=== PATIENT | female | born 2000 | race Caucasian/White ===

== ENCOUNTER 2022-06-05 03:45 | Inpatient (IN) | payer SELFPAY ==
--- NOTE | 2022-06-05 | ECG_ITS ---
Test Reason : MED CLEARANCE Blood Pressure : / mmHG Vent. Rate : 071 BPM Atrial Rate : 071 BPM P-R Int : 114 ms QRS Dur : 084 ms QT Int : 406 ms P-R-T Axes : 058 070 043 degrees QTc Int : 441 ms Normal sinus rhythm with sinus arrhythmia Normal ECG No previous ECGs available Referred By: Cuca Hernandez Electronically Signed By:SHIVAM MATHEWS MD
[2022-06-05 03:56] VITALS: BP 136/97; PULSE 97; RESP 16; TEMP 37.2; O2SAT 100; BMI 19.5
[2022-06-05 04:20] LABS: Appearance Urine Turbid; Color Urine Yellow; Glucose Urine UA Negative (Negative); Leukocyte Esterase Urine Moderate (2+) (Negative); Nitrite Urine Positive (Negative); PH 6.5 (5.0-9.0); Specific Gravity - Urine 1.015 (1.005-1.025); UMIC TRIGGER UA YES; Urine Blood Negative (Negative); Urine Ketones Negative (Negative); Urine Protein Negative (Neg-Trace)
[2022-06-05 04:21] LABS: UPreg QC Valid YES; Urine Pregnancy NEGATIVE (NEGATIVE)
--- NOTE | 2022-06-05 04:25 | ED.PSYCH ---
HPI - Psych General Chief Complaint: Psychiatric Symptoms <Samuel Moeller MD - Last Filed: 06/05/22 07:28> Stated Complaint: section 12 <Samuel Moeller MD - Last Filed: 06/05/22 07:28> Time Seen by Provider: 06/05/22 03:48 <Samuel Moeller MD - Last Filed: 06/05/22 07:28> Source: patient <Samuel Moeller MD - Last Filed: 06/05/22 07:28> Mode of arrival: EMS <Samuel Moeller MD - Last Filed: 06/05/22 07:28> Limitations: no limitations <Samuel Moeller MD - Last Filed: 06/05/22 07:28> History of Present Illness HPI Narrative: Previously of bipolar disorder not take any medication her car got towed because she did have registration went to the police station was very paranoid seeing at being kidnapped backache AKA very anxious when she arrived at the time of the kidney patient is Hanna cooperative denied any other c/o no suicidal <Samuel Moeller MD - Last Filed: 06/05/22 07:28> Related Data Home Medications: Home Medications Medication Instructions Recorded Confirmed No Known Home Meds 06/05/22 06/05/22 <Samuel Moeller MD - Last Filed: 06/05/22 07:28> Allergies/Adverse Reactions: Allergies Allergy/AdvReac Type Severity Reaction Status Date / Time No Known Allergies Allergy Verified 06/05/22 03:55 <Samuel Moeller MD - Last Filed: 06/05/22 07:28> Review of Systems Review of Systems: Yes all other systems are reviewed and are negative <Samuel Moeller MD - Last Filed: 06/05/22 07:28> [facility] Social History Social History: Social History Advance Directives: No Advance Directives Information Provided: No <Samuel Moeller MD - Last Filed: 06/05/22 07:28> Physical Exam Vital Signs: Vital Signs: Last Vital Signs Temp 99.0 F 06/05/22 03:56 Pulse 97 06/05/22 03:56 Resp 16 06/05/22 03:56 BP 136/97 H 06/05/22 03:56 Pulse Ox 100 06/05/22 03:56 O2 Del Method 06/05/22 03:56 BMI result Body Mass Index 19.5 <Samuel Moeller MD - Last Filed: 06/05/22 07:28> Vital Signs: Last Vital Signs Temp 99.0 F 06/05/22 03:56 Pulse 97 06/05/22 03:56 Resp 16 06/05/22 03:56 BP 136/97 H 06/05/22 03:56 Pulse Ox 100 06/05/22 03:56 O2 Del Method 06/05/22 03:56 BMI result Body Mass Index 19.5 <Pattie Lynn DO - Last Filed: 06/05/22 09:23> Appearance: Alert. Oriented X3. No acute distress. Blank facies Eyes: PERRLA, No Nystagmus ENT: Pharynx normal. Oral Mucosa moist Neck: Normal inspection. Neck supple. CVS: Normal heart rate and rhythm. Pulses normal. Respiratory: No respiratory distress. Equal air entry bilateral, no wheezing/rales/rhonchi Abdomen: Soft and nontender. Bowel sounds are present, no mass palpable, no CVA tenderness Skin: Skin warm and dry. Normal skin color. Normal skin turgor. Extremities: No lower extremity edema. No calf tenderness Psych: Flat affect no hesitation delusion at this time no suicidal feeling Neuro: Oriented X 3. No motor deficit. No sensory deficit.No cerebellar signs , cranial nerves II-XII intact <Samuel Moeller MD - Last Filed: 06/05/22 07:28> Course Course Course Narrative: 06/05/22 922am Physician observation started at 922am Patient placed in physician observation because the patient needed more time for CARE team to assess the need for psych admission. At the time observation was started the patient's vitals were stable, has UTI will start on macrobid, VS stable, no acute events reported overnight. <Pattie Lynn DO - Last Filed: 06/05/22 09:23> MDM - Psych Lab Data Result diagrams: : 06/05/22 05:03 06/05/22 05:03 <Samuel Moeller MD - Last Filed: 06/05/22 07:28> Labs: Lab Results 06/05/22 06/05/22 06/05/22 Range/Units 04:09 04:10 04:10 WBC (4.8-10.8) X10*3/uL RBC (4.20-5.50) X10*6/uL Hgb (12.0-16.0) g/dl Hct (37.0-47.0) % MCV (80.0-98.0) fL MCH (27.0-33.0) pg MCHC (31.0-35.0) g/dl RDW (11.0-16.0) % Plt Count (160-400) X10*3/uL MPV (9.4-12.3) fL Immature Gran % (Auto) (0.0-0.4) % Neut % (Auto) (45-73) % Lymph % (Auto) (20-40) % [place] % (Auto) (2-11) % Eos % (Auto) (0-4) % Baso % (Auto) (0-2) % Lymph # (Auto) (1.2-4.9) X10*3/uL [place] # (Auto) (0.1-1.2) X10*3/uL Eos # (Auto) (0.0-0.4) X10*3/uL Baso # (Auto) (0.0-0.2) X10*3/uL Abs Immat Gran (auto) (0.00-0.03) X10*3/uL Absolute Neuts (auto) (2.0-8.3) x10*3/uL Absolute Nucleated RBC (0.0-0.012) X10*3/uL Nucleated RBC % (auto) (0.0-0.2) /100WBC Sodium (135-145) mmol/L Potassium (3.3-5.1) mmol/L Chloride (96-108) mmol/L Carbon Dioxide (22-29) mmol/L Anion Gap (12-20) BUN (9-16) mg/dL Creatinine (0.5-1.4) mg/dL Estim Creat Clear Calc Estimated GFR Random Glucose (60-115) mg/dL Calcium (8.4-10.2) mg/dL Total Bilirubin (0.0-1.0) mg/dL AST (5-31) U/L ALT (0-31) U/L Alkaline Phosphatase (39-117) U/L Total Protein (6.5-8.0) g/dL Albumin (3.5-5.0) g/dL Urine Color Urine Appearance Urine pH (5.0-9.0) Ur Specific [place] (1.005-1.025) Urine Protein (Neg-Trace) mg/dL Urine Glucose (UA) (Negative) mg/dL Urine Ketones (Negative) mg/dL Urine Blood (Negative) Urine Nitrite (Negative) Ur Leukocyte Esterase (Negative) Urine RBC (0-2) /HPF Urine WBC (0-5) /HPF Ur Squamous Epith Cells (0-2) /HPF Urine Bacteria (None Seen) Hyaline Casts (0-2) /LPF Urine Test NEGATIVE (NEGATIVE) Urine Opiates Screen Not Detected (Not Detect) Urine Fentanyl Screen Not Detected (Not Detect) Ur Barbiturates Screen Not Detected (Not Detect) Ur Phencyclidine Scrn Not Detected (Not Detect) Ur Amphetamines Screen Not Detected (Not Detect) U Benzodiazepines Scrn Not Detected (Not Detect) Urine Cocaine Screen Not Detected (Not Detect) U Marijuana (THC) Screen POSITIVE H (Not Detect) Ethyl Alcohol mg/dL COVID-19 (JUANITA) Negative (Negative) COVID-19 Clin Com See Note 06/05/22 06/05/22 06/05/22 Range/Units 04:10 05:03 05:03 WBC 10.8 (4.8-10.8) X10*3/uL RBC 4.70 (4.20-5.50) X10*6/uL Hgb 14.7 (12.0-16.0) g/dl Hct 41.7 (37.0-47.0) % MCV 88.7 (80.0-98.0) fL MCH 31.3 (27.0-33.0) pg MCHC 35.3 H (31.0-35.0) g/dl RDW 11.6 (11.0-16.0) % Plt Count 173 (160-400) X10*3/uL MPV 9.9 (9.4-12.3) fL Immature Gran % (Auto) 0.3 (0.0-0.4) % Neut % (Auto) 71.5 (45-73) % Lymph % (Auto) 20.2 (20-40) % [place] % (Auto) 6.4 (2-11) % Eos % (Auto) 1.0 (0-4) % Baso % (Auto) 0.6 (0-2) % Lymph # (Auto) 2.2 (1.2-4.9) X10*3/uL [place] # (Auto) 0.7 (0.1-1.2) X10*3/uL Eos # (Auto) 0.1 (0.0-0.4) X10*3/uL Baso # (Auto) 0.1 (0.0-0.2) X10*3/uL Abs Immat Gran (auto) 0.03 (0.00-0.03) X10*3/uL Absolute Neuts (auto) 7.7 (2.0-8.3) x10*3/uL Absolute Nucleated RBC 0.000 (0.0-0.012) X10*3/uL Nucleated RBC % (auto) 0.0 (0.0-0.2) /100WBC Sodium 143 (135-145) mmol/L Potassium 3.4 (3.3-5.1) mmol/L Chloride 106 (96-108) mmol/L Carbon Dioxide 25 (22-29) mmol/L Anion Gap 15 (12-20) BUN 13 (9-16) mg/dL Creatinine 0.73 (0.5-1.4) mg/dL Estim Creat Clear Calc 95.6 Estimated GFR > 60 Random Glucose 92 (60-115) mg/dL Calcium 9.4 (8.4-10.2) mg/dL Total Bilirubin 0.3 (0.0-1.0) mg/dL AST 15 (5-31) U/L ALT 10 (0-31) U/L Alkaline Phosphatase 44 (39-117) U/L Total Protein 7.0 (6.5-8.0) g/dL Albumin 4.6 (3.5-5.0) g/dL Urine Color Yellow Urine Appearance Turbid Urine pH 6.5 (5.0-9.0) Ur Specific [place] 1.015 (1.005-1.025) Urine Protein Negative (Neg-Trace) mg/dL Urine Glucose (UA) Negative (Negative) mg/dL Urine Ketones Negative (Negative) mg/dL Urine Blood Negative (Negative) Urine Nitrite Positive H (Negative) Ur Leukocyte Esterase Moderate (2+) H (Negative) Urine RBC 0-2 (0-2) /HPF Urine WBC >50 H (0-5) /HPF Ur Squamous Epith Cells 6-10 (0-2) /HPF Urine Bacteria 4+ (None Seen) Hyaline Casts 0-2 (0-2) /LPF Urine Test (NEGATIVE) Urine Opiates Screen (Not Detect) Urine Fentanyl Screen (Not Detect) Ur Barbiturates Screen (Not Detect) Ur Phencyclidine Scrn (Not Detect) Ur Amphetamines Screen (Not Detect) U Benzodiazepines Scrn (Not Detect) Urine Cocaine Screen (Not Detect) U Marijuana (THC) Screen (Not Detect) Ethyl Alcohol mg/dL COVID-19 (JUANITA) (Negative) COVID-19 Clin Com 06/05/22 Range/Units 05:03 WBC (4.8-10.8) X10*3/uL RBC (4.20-5.50) X10*6/uL Hgb (12.0-16.0) g/dl Hct (37.0-47.0) % MCV (80.0-98.0) fL MCH (27.0-33.0) pg MCHC (31.0-35.0) g/dl RDW (11.0-16.0) % Plt Count (160-400) X10*3/uL MPV (9.4-12.3) fL Immature Gran % (Auto) (0.0-0.4) % Neut % (Auto) (45-73) % Lymph % (Auto) (20-40) % [place] % (Auto) (2-11) % Eos % (Auto) (0-4) % Baso % (Auto) (0-2) % Lymph # (Auto) (1.2-4.9) X10*3/uL [place] # (Auto) (0.1-1.2) X10*3/uL Eos # (Auto) (0.0-0.4) X10*3/uL Baso # (Auto) (0.0-0.2) X10*3/uL Abs Immat Gran (auto) (0.00-0.03) X10*3/uL Absolute Neuts (auto) (2.0-8.3) x10*3/uL Absolute Nucleated RBC (0.0-0.012) X10*3/uL Nucleated RBC % (auto) (0.0-0.2) /100WBC Sodium (135-145) mmol/L Potassium (3.3-5.1) mmol/L Chloride (96-108) mmol/L Carbon Dioxide (22-29) mmol/L Anion Gap (12-20) BUN (9-16) mg/dL Creatinine (0.5-1.4) mg/dL Estim Creat Clear Calc Estimated GFR Random Glucose (60-115) mg/dL Calcium (8.4-10.2) mg/dL Total Bilirubin (0.0-1.0) mg/dL AST (5-31) U/L ALT (0-31) U/L Alkaline Phosphatase (39-117) U/L Total Protein (6.5-8.0) g/dL Albumin (3.5-5.0) g/dL Urine Color Urine Appearance Urine pH (5.0-9.0) Ur Specific [place] (1.005-1.025) Urine Protein (Neg-Trace) mg/dL Urine Glucose (UA) (Negative) mg/dL Urine Ketones (Negative) mg/dL Urine Blood (Negative) Urine Nitrite (Negative) Ur Leukocyte Esterase (Negative) Urine RBC (0-2) /HPF Urine WBC (0-5) /HPF Ur Squamous Epith Cells (0-2) /HPF Urine Bacteria (None Seen) Hyaline Casts (0-2) /LPF Urine Test (NEGATIVE) Urine Opiates Screen (Not Detect) Urine Fentanyl Screen (Not Detect) Ur Barbiturates Screen (Not Detect) Ur Phencyclidine Scrn (Not Detect) Ur Amphetamines Screen (Not Detect) U Benzodiazepines Scrn (Not Detect) Urine Cocaine Screen (Not Detect) U Marijuana (THC) Screen (Not Detect) Ethyl Alcohol < 10 mg/dL COVID-19 (JUANITA) (Negative) COVID-19 Clin Com <Samuel Moeller MD - Last Filed: 06/05/22 07:28> Lab Results 06/05/22 06/05/22 06/05/22 Range/Units 04:09 04:10 04:10 WBC (4.8-10.8) X10*3/uL RBC (4.20-5.50) X10*6/uL Hgb (12.0-16.0) g/dl Hct (37.0-47.0) % MCV (80.0-98.0) fL MCH (27.0-33.0) pg MCHC (31.0-35.0) g/dl RDW (11.0-16.0) % Plt Count (160-400) X10*3/uL MPV (9.4-12.3) fL Immature Gran % (Auto) (0.0-0.4) % Neut % (Auto) (45-73) % Lymph % (Auto) (20-40) % [place] % (Auto) (2-11) % Eos % (Auto) (0-4) % Baso % (Auto) (0-2) % Lymph # (Auto) (1.2-4.9) X10*3/uL [place] # (Auto) (0.1-1.2) X10*3/uL Eos # (Auto) (0.0-0.4) X10*3/uL Baso # (Auto) (0.0-0.2) X10*3/uL Abs Immat Gran (auto) (0.00-0.03) X10*3/uL Absolute Neuts (auto) (2.0-8.3) x10*3/uL Absolute Nucleated RBC (0.0-0.012) X10*3/uL Nucleated RBC % (auto) (0.0-0.2) /100WBC Sodium (135-145) mmol/L Potassium (3.3-5.1) mmol/L Chloride (96-108) mmol/L Carbon Dioxide (22-29) mmol/L Anion Gap (12-20) BUN (9-16) mg/dL Creatinine (0.5-1.4) mg/dL Estim Creat Clear Calc Estimated GFR Random Glucose (60-115) mg/dL Calcium (8.4-10.2) mg/dL Total Bilirubin (0.0-1.0) mg/dL AST (5-31) U/L ALT (0-31) U/L Alkaline Phosphatase (39-117) U/L Total Protein (6.5-8.0) g/dL Albumin (3.5-5.0) g/dL Urine Color Urine Appearance Urine pH (5.0-9.0) Ur Specific [place] (1.005-1.025) Urine Protein (Neg-Trace) mg/dL Urine Glucose (UA) (Negative) mg/dL Urine Ketones (Negative) mg/dL Urine Blood (Negative) Urine Nitrite (Negative) Ur Leukocyte Esterase (Negative) Urine RBC (0-2) /HPF Urine WBC (0-5) /HPF Ur Squamous Epith Cells (0-2) /HPF Urine Bacteria (None Seen) Hyaline Casts (0-2) /LPF Urine Test NEGATIVE (NEGATIVE) Urine Opiates Screen Not Detected (Not Detect) Urine Fentanyl Screen Not Detected (Not Detect) Ur Barbiturates Screen Not Detected (Not Detect) Ur Phencyclidine Scrn Not Detected (Not Detect) Ur Amphetamines Screen Not Detected (Not Detect) U Benzodiazepines Scrn Not Detected (Not Detect) Urine Cocaine Screen Not Detected (Not Detect) U Marijuana (THC) Screen POSITIVE H (Not Detect) Ethyl Alcohol mg/dL COVID-19 (JUANITA) Negative (Negative) COVID-19 Clin Com See Note 06/05/22 06/05/22 06/05/22 Range/Units 04:10 05:03 05:03 WBC 10.8 (4.8-10.8) X10*3/uL RBC 4.70 (4.20-5.50) X10*6/uL Hgb 14.7 (12.0-16.0) g/dl Hct 41.7 (37.0-47.0) % MCV 88.7 (80.0-98.0) fL MCH 31.3 (27.0-33.0) pg MCHC 35.3 H (31.0-35.0) g/dl RDW 11.6 (11.0-16.0) % Plt Count 173 (160-400) X10*3/uL MPV 9.9 (9.4-12.3) fL Immature Gran % (Auto) 0.3 (0.0-0.4) % Neut % (Auto) 71.5 (45-73) % Lymph % (Auto) 20.2 (20-40) % [place] % (Auto) 6.4 (2-11) % Eos % (Auto) 1.0 (0-4) % Baso % (Auto) 0.6 (0-2) % Lymph # (Auto) 2.2 (1.2-4.9) X10*3/uL [place] # (Auto) 0.7 (0.1-1.2) X10*3/uL Eos # (Auto) 0.1 (0.0-0.4) X10*3/uL Baso # (Auto) 0.1 (0.0-0.2) X10*3/uL Abs Immat Gran (auto) 0.03 (0.00-0.03) X10*3/uL Absolute Neuts (auto) 7.7 (2.0-8.3) x10*3/uL Absolute Nucleated RBC 0.000 (0.0-0.012) X10*3/uL Nucleated RBC % (auto) 0.0 (0.0-0.2) /100WBC Sodium 143 (135-145) mmol/L Potassium 3.4 (3.3-5.1) mmol/L Chloride 106 (96-108) mmol/L Carbon Dioxide 25 (22-29) mmol/L Anion Gap 15 (12-20) BUN 13 (9-16) mg/dL Creatinine 0.73 (0.5-1.4) mg/dL Estim Creat Clear Calc 95.6 Estimated GFR > 60 Random Glucose 92 (60-115) mg/dL Calcium 9.4 (8.4-10.2) mg/dL Total Bilirubin 0.3 (0.0-1.0) mg/dL AST 15 (5-31) U/L ALT 10 (0-31) U/L Alkaline Phosphatase 44 (39-117) U/L Total Protein 7.0 (6.5-8.0) g/dL Albumin 4.6 (3.5-5.0) g/dL Urine Color Yellow Urine Appearance Turbid Urine pH 6.5 (5.0-9.0) Ur Specific [place] 1.015 (1.005-1.025) Urine Protein Negative (Neg-Trace) mg/dL Urine Glucose (UA) Negative (Negative) mg/dL Urine Ketones Negative (Negative) mg/dL Urine Blood Negative (Negative) Urine Nitrite Positive H (Negative) Ur Leukocyte Esterase Moderate (2+) H (Negative) Urine RBC 0-2 (0-2) /HPF Urine WBC >50 H (0-5) /HPF Ur Squamous Epith Cells 6-10 (0-2) /HPF Urine Bacteria 4+ (None Seen) Hyaline Casts 0-2 (0-2) /LPF Urine Test (NEGATIVE) Urine Opiates Screen (Not Detect) Urine Fentanyl Screen (Not Detect) Ur Barbiturates Screen (Not Detect) Ur Phencyclidine Scrn (Not Detect) Ur Amphetamines Screen (Not Detect) U Benzodiazepines Scrn (Not Detect) Urine Cocaine Screen (Not Detect) U Marijuana (THC) Screen (Not Detect) Ethyl Alcohol mg/dL COVID-19 (JUANITA) (Negative) COVID-19 Clin Com 06/05/22 Range/Units 05:03 WBC (4.8-10.8) X10*3/uL RBC (4.20-5.50) X10*6/uL Hgb (12.0-16.0) g/dl Hct (37.0-47.0) % MCV (80.0-98.0) fL MCH (27.0-33.0) pg MCHC (31.0-35.0) g/dl RDW (11.0-16.0) % Plt Count (160-400) X10*3/uL MPV (9.4-12.3) fL Immature Gran % (Auto) (0.0-0.4) % Neut % (Auto) (45-73) % Lymph % (Auto) (20-40) % [place] % (Auto) (2-11) % Eos % (Auto) (0-4) % Baso % (Auto) (0-2) % Lymph # (Auto) (1.2-4.9) X10*3/uL [place] # (Auto) (0.1-1.2) X10*3/uL Eos # (Auto) (0.0-0.4) X10*3/uL Baso # (Auto) (0.0-0.2) X10*3/uL Abs Immat Gran (auto) (0.00-0.03) X10*3/uL Absolute Neuts (auto) (2.0-8.3) x10*3/uL Absolute Nucleated RBC (0.0-0.012) X10*3/uL Nucleated RBC % (auto) (0.0-0.2) /100WBC Sodium (135-145) mmol/L Potassium (3.3-5.1) mmol/L Chloride (96-108) mmol/L Carbon Dioxide (22-29) mmol/L Anion Gap (12-20) BUN (9-16) mg/dL Creatinine (0.5-1.4) mg/dL Estim Creat Clear Calc Estimated GFR Random Glucose (60-115) mg/dL Calcium (8.4-10.2) mg/dL Total Bilirubin (0.0-1.0) mg/dL AST (5-31) U/L ALT (0-31) U/L Alkaline Phosphatase (39-117) U/L Total Protein (6.5-8.0) g/dL Albumin (3.5-5.0) g/dL Urine Color Urine Appearance Urine pH (5.0-9.0) Ur Specific [place] (1.005-1.025) Urine Protein (Neg-Trace) mg/dL Urine Glucose (UA) (Negative) mg/dL Urine Ketones (Negative) mg/dL Urine Blood (Negative) Urine Nitrite (Negative) Ur Leukocyte Esterase (Negative) Urine RBC (0-2) /HPF Urine WBC (0-5) /HPF Ur Squamous Epith Cells (0-2) /HPF Urine Bacteria (None Seen) Hyaline Casts (0-2) /LPF Urine Test (NEGATIVE) Urine Opiates Screen (Not Detect) Urine Fentanyl Screen (Not Detect) Ur Barbiturates Screen (Not Detect) Ur Phencyclidine Scrn (Not Detect) Ur Amphetamines Screen (Not Detect) U Benzodiazepines Scrn (Not Detect) Urine Cocaine Screen (Not Detect) U Marijuana (THC) Screen (Not Detect) Ethyl Alcohol < 10 mg/dL COVID-19 (JUANITA) (Negative) COVID-19 Clin Com <Pattie Lynn DO - Last Filed: 06/05/22 09:23> Discharge Plan Discharge Clinical Impression: Bipolar disorder, Depression, Acute UTI <Samuel Moeller MD - Last Filed: 06/05/22 07:28> Patient Disposition: Still a Patient <Samuel Moeller MD - Last Filed: 06/05/22 07:28> Prescriptions: No Action No Known Home Meds <Samuel Moeller MD - Last Filed: 06/05/22 07:28>
--- OUTSIDE RECORDS SUMMARY | 2022-06-05 04:31 | XMS_ITS ---
:2000 Author Care Team Providers Name Role Phone JefferyRoger Primary Care Provider Unavailable Allergies Code Code System Name Reaction Severity Status Onset NKDA ? Medications Name Status Start Date Stop Date ? ? buspirone 5 mg tablet Active ? Not availa ble TAKE ONE AT BEDTIME X 5 DAYS THEN TAKE ONE TABLET TWICE A DAY ceftriaxone 500 mg solution for injection Active ? Not available Take 500 mg by injection route. Diflucan 150 mg tablet Active ? Not avail able Take 1 tablet every day by oral route as directed for 1 day. doxycycline hyclate 100 mg tablet Active ? Not available Take 1 tablet twice a day by oral route for 7 days. Flagyl 500 mg tablet Active ? Not availab le Take 1 tablet every 12 hours by oral route as directed for 7 da ys. avoid alcohol while on meds and 48 hours after completing treat ment lamotrigine 100 mg tablet Active ? Not av ailable TAKE 1 TABLET BY MOUTH EVERY DAY lamotrigine 25 mg tablet Active ? Not inderjit ilable TAKE ONE DAILY X 7 DAYS THEN TAKE 1 TAB TWICE A DAY X 7 DAYS THEN TAKE 2 TABS TWICE A DAY sertraline 25 mg tablet Active ? Not avai lable TAKE 1 TABLET BY MOUTH EVERY DAY Problems None recorded. Procedures None recorded. Results Lab Results Date Name Specimen Result Interpretation Description Value Range Status Address ? 01/15/2021 Vaginosis ABNORMAL Bacterial ? (neg) Ynes garcias [facility] Vaginitis Vaginosis Refe rence plus Laboratori es: [address], [place] ? ? ABNORMAL Danette ? (neg) Final [facility] Laborator[facility] es: [address], [place] ? ? Normal Danette ? (neg) Final [facility] [place] Referenc e Laboratori es: [address], [place] ? ? Normal Trichomonas ? (neg) Final [place] Vaginalis Referen ce Laboratori es: [address], [place] ? ? Normal C.trachomati ? (neg) Final [facility] s Amp Probe Refer ence Laboratori es: [address], [place] ? ? Normal N.gonorrhoea ? (neg) Final [facility] e Amp Probe Refer ence Laboratori es: [address], [place] 01/15/2021 Culture, Urine ? Specimen clean ? Final [facility] Urine Description catch Refer ence (urine) Laborator ies: [address], [place] ? ? Urine ? Special none ? Final [facility] Requests Referenc e Laboratori es: [address], [place] ? ? Urine ? Culture mixed ? Final [facility] bacterial Referen ce av, Laboratori es: indicativ [address], [place]. ? ? Urine ? Report final ? Final [facility] Status Referen ce 1 Laboratori es: [address], [place] 01/15/2021 ? Hcg negative ? ? [facility] [place] : Urine [address], [place] 01/15/2021 Urinalysis ? Appearance cloudy ? ? [facility] [place]: [address], [place] ? ? ? Color yellow ? ? [facility] [place] : [address], [place] ? ? ? Glucose Negative ? ? [facility] [place] : [address], [place] ? ? ? Bilirubin Negative ? ? [facility] [place] : [address], [place] ? ? ? Ketone Negative ? ? [facility] [place] : [address], [place] ? ? ? Specific 1.010 ? ? [facility] [place]: [address], [place] ? ? ? Blood Trace(non ? ? [facility] [place] d) [address], [place] ? ? ? Ph 8.0 ? ? [facility] [place] : [address], [place] ? ? ? Protein 30 + ? ? [facility] [place] : [address], [place] ? ? ? Urobilinogen 0.2-Yadira ? ? [facility] [place] : [address], [place] ? ? ? Nitrite negative ? ? [facility] [place] : [address], [place] ? ? ? Leukocytes Small+ ? ? [facility] [place] : [address], [place] Past Encounters 01/15/2021 At Risk of Sexually Transmitted Infectio n Enoc Lord MD: [address], [place] [facility] [place] [id number], Ph. Social History Tobacco Smoking Status Heavy Tobacco Smoker (1/2 pack per da y) Vaccine List Vaccine Type Tdap 03/07/2020 Plan of Care Reminders Provider Appointments None recorded. ? ? Lab None recorded. ? ? Referral None recorded. ? ? Procedures None recorded. ? ? Surgeries None recorded. ? ? Imaging None recorded. ? ? Vitals Blood Pressure 116/72 mm[Hg]
[2022-06-05 04:32] LABS: COVID-19 Test Negative (Negative)
[2022-06-05 04:34] LABS: Amphetamine Screen Urine Not Detected (Not Detect); Barbiturates, Urine Not Detected (Not Detect); Benzodiazepines Screen Urine Not Detected (Not Detect); Cannabinoid Screen Urine POSITIVE (Not Detect); Cocaine Screen Urine Not Detected (Not Detect); Fentanyl, urine Not Detected (Not Detect); Opiate Screen Urine Not Detected (Not Detect); Phencyclidine Screen Urine Not Detected (Not Detect)
[2022-06-05 05:03] LABS: Bacteria Urine 4+ (None Seen); Hyaline Casts Urine 0-2 /LPF (0-2); RBC Urine 0-2 /HPF (0-2); WBC Urine >50 /HPF (0-5)
[2022-06-05 05:09] LABS: Basophils Absolute Auto 0.1 X10*3/uL (0.0-0.2); Basophils Percent Auto 0.6 % (0-2); Eosinophils Absolute Auto 0.1 X10*3/uL (0.0-0.4); Hematocrit 41.7 % (37.0-47.0); Hemoglobin 14.7 g/dl (12.0-16.0); Imm Gran Abs Auto 0.03 X10*3/uL (0.00-0.03); Imm Gran Pct Auto 0.3 % (0.0-0.4); Lymphocytes Absolute Auto 2.2 X10*3/uL (1.2-4.9); Lymphocytes Percent Auto 20.2 % (20-40); MANUAL DIFF FLAG NO; Mean Corpuscular HGB Conc 35.3 g/dl (31.0-35.0); Mean Corpuscular Hemoglobin 31.3 pg (27.0-33.0); Mean Corpuscular Volume 88.7 fL (80.0-98.0); Mean Platelet Volume 9.9 fL (9.4-12.3); Monocytes Absolute Auto 0.7 X10*3/uL (0.1-1.2); Monocytes Percent Auto 6.4 % (2-11); Neutrophils Absolute Auto 7.7 x10*3/uL (2.0-8.3); Neutrophils Percent Auto 71.5 % (45-73); Platelet Count 173 X10*3/uL (160-400); Red Cell Distribution Width 11.6 % (11.0-16.0); White Blood Count 10.8 X10*3/uL (4.8-10.8)
[2022-06-05 05:32] LABS: Ethanol < 10 mg/dL
[2022-06-05 05:35] LABS: Alanine Aminotransferase 10 U/L (0-31); Albumin Level 4.6 g/dL (3.5-5.0); Alkaline Phosphatase 44 U/L (39-117); Anion Gap 15 (12-20); Aspartate Amino Transferase 15 U/L (5-31); Bilirubin Total 0.3 mg/dL (0.0-1.0); Blood Urea Nitrogen 13 mg/dL (9-16); Calcium 9.4 mg/dL (8.4-10.2); Carbon Dioxide 25 mmol/L (22-29); Chloride 106 mmol/L (96-108); Creatinine Clr Calc Pharmacy 95.6; Estimated Glomerular Filt Rate > 60; Glucose Random 92 mg/dL (60-115); Potassium 3.4 mmol/L (3.3-5.1); Sodium 143 mmol/L (135-145)
--- NOTE | 2022-06-05 06:19 | PC.NURSE ---
Patient in her room sleeping comfortably, no distress noted. Will continue to monitor.
--- NOTE | 2022-06-05 08:18 | PC.NURSE ---
Pharmacy called about med rec
[2022-06-05 09:33] VITALS: BP 98/61; PULSE 98; RESP 16; TEMP 36.4; O2SAT 99
[2022-06-05] MEDS: Nitrofurantoin Monohyd/M-Cryst 100 MG CAPSULE PO ×2 (09:37→20:31)
--- NOTE | 2022-06-05 09:38 | PHA.MEDREC ---
Pharmacy Consult ? Medication Reconciliation Patient is on no know medications per Garth.
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
[2022-06-05] MEDS: OLANZapine ODT 10 MG TAB.RAPDIS TRANSLINGU ×2 (12:42→19:04)
--- NOTE | 2022-06-05 12:56 | PC.NURSE ---
Per care team who spoke to clients mother patient had a significant overdose years ago on tylenol and alcohol. The mother reports the patient has a prolonged QT interval and cannot take tylenol due to damage done to her liver. Cuca Hernandez made aware.
[2022-06-05 16:29] VITALS: BP 107/65; PULSE 85; RESP 16; TEMP 36.1; O2SAT 98
--- NOTE | 2022-06-05 18:47 | PC.NURSE ---
Patient came out of room saying she needed to get her car. She states that she will be homeless if she does not get her car. She became escalated to which charge master analyst, security and Elisha BLOCK SPLITTER OPERATOR were called. Patient continued to say that she is black and that she does not want to be a sex slave . The patient called her mother to which she continues to repeat these same phrases. The mother told this RN that this is typical of her daughter. This patient appeared to be confused but was cooperative, she took PRN Zyprexa and ativan.
[2022-06-05] MEDS: LORazepam 1 MG TABLET PO (19:05)
[2022-06-05] MEDS: Paliperidone ER 6 MG TAB.ER.24 PO (20:31)
--- NOTE | 2022-06-05 22:32 | PC.NURSE ---
1899 patient was by the nurses station agitated, calling out she was a black woman and she didn't want any white people taking care of her, at this time safety was provide and medication po given Ativan and Zyprexa ,she was back in the room getting sleepy and quiet. 1999 Patient sleeping comfortably, no distress noted. will continue to monitor. 2199 Patient was up for her PM medications,pleasant cooperative, relaxed. Will continue to monitor.
--- NOTE | 2022-06-06 00:43 | PC.NURSE ---
Patient is up to used the bathroom, she was given a sandwich with juice for snack, she was pleasant and thankful. Will continue to monitor.
[2022-06-06 00:47] VITALS: BP 104/70; PULSE 81; RESP 15; TEMP 36.4; O2SAT 99
--- NOTE | 2022-06-06 06:46 | PC.NURSE ---
Patient sleeping comfortably, no distress noted. Will continue to monitor.
[2022-06-06] MEDS: Nitrofurantoin Monohyd/M-Cryst 100 MG CAPSULE PO ×2 (10:11→20:54)
--- NOTE | 2022-06-06 11:38 | PC.NURSE ---
pt seen by woody (pnp) pt aware of plan of care.
--- NOTE | 2022-06-06 11:46 | PC.NURSE ---
rn to rn report given to zaire orosco aware of plan of care for transfer to m3 later today
[2022-06-06 13:33] VITALS: BP 87/69; PULSE 114; RESP 14; TEMP 37.3; O2SAT 100
[2022-06-06 14:23] VITALS: BP 109/62; PULSE 104; RESP 14; O2SAT 98
--- NOTE | 2022-06-06 14:27 | PC.NURSE ---
Pt seen this date for individual OT tx. Pt presents anxious, cheerful, with carri however pleasant and polite she is receptive to conversation with this PIG MACHINE CRANE OPERATOR/L. Pt continues to report that she needs to leave [facility] to retrieve her car because shew is homeless and needs the car for so she doesn't have to sleep outside. Pt persists with manic type behaviors/speech. She is receptive to sensory item, coloring pages, as well as word finds to occupy her time wile awaiting placement in POD. Pt actively engages in sensory activity upon conclusion of session.
[2022-06-06 16:25] VITALS: BP 97/52; PULSE 101; RESP 16; TEMP 36.7; O2SAT 100
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
[2022-06-06 19:30] VITALS: BP 113/60; PULSE 106; RESP 16; TEMP 36.8; O2SAT 100
[2022-06-06] MEDS: Paliperidone ER 6 MG TAB.ER.24 PO (20:54)
[2022-06-07 06:00] VITALS: BP 107/54; PULSE 82; RESP 18; TEMP 36.6; O2SAT 99
[2022-06-07 09:31] LABS: Estimated Average Glucose 80 mg/dL; Hemoglobin A1c % 4.4 %
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
[2022-06-07 09:55] LABS: Alanine Aminotransferase 7 U/L (0-31); Albumin Level 4.3 g/dL (3.5-5.0); Alkaline Phosphatase 39 U/L (39-117); Anion Gap 12 (12-20); Aspartate Amino Transferase 11 U/L (5-31); Bilirubin Total 0.4 mg/dL (0.0-1.0); Blood Urea Nitrogen 14 mg/dL (9-16); Carbon Dioxide 26 mmol/L (22-29); Chloride 108 mmol/L (96-108); Cholesterol 172 mg/dL; Creatinine Clr Calc Pharmacy 93.1; Estimated Glomerular Filt Rate > 60; Glucose Fasting 95 mg/dL (60-99); HDL Cholesterol 43 mg/dL; LDL Cholesterol Calculated 114 mg/dl; Sodium 142 mmol/L (135-145); Total Protein 6.6 g/dL (6.5-8.0); Triglycerides 77 mg/dL
[2022-06-07 10:18] LABS: Thyroid Stimulating Hormone 1.15 uIU/mL (0.32-4.0)
[2022-06-07] MEDS: Nitrofurantoin Monohyd/M-Cryst 100 MG CAPSULE PO ×2 (10:31→21:46)
[2022-06-07 10:33] LABS: Folate 5.8 ng/mL (> or = 4.0); Vitamin B12 195 pg/mL (200-900)
[2022-06-07 21:46] VITALS: BP 112/69; PULSE 94; RESP 18; TEMP 36.8; O2SAT 100
[2022-06-07] MEDS: Paliperidone ER 6 MG TAB.ER.24 PO (21:46)
[2022-06-08 06:00] VITALS: BP 114/75; PULSE 114; RESP 16; TEMP 36.7; O2SAT 98
[2022-06-08] MEDS: Nitrofurantoin Monohyd/M-Cryst 100 MG CAPSULE PO ×2 (09:34→20:15)
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
[2022-06-08] MEDS: Paliperidone ER 6 MG TAB.ER.24 PO (20:14)
[2022-06-08 20:15] VITALS: BP 105/62; PULSE 109; RESP 18; TEMP 36.9; O2SAT 99
[2022-06-09 09:30] VITALS: BP 101/58; PULSE 101; RESP 18; TEMP 36.6; O2SAT 98
[2022-06-09] MEDS: Nitrofurantoin Monohyd/M-Cryst 100 MG CAPSULE PO ×2 (09:50→21:27)
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
[2022-06-09 20:05] VITALS: BP 130/56; PULSE 105; RESP 16; TEMP 36.7; O2SAT 99
[2022-06-09] MEDS: Paliperidone ER 6 MG TAB.ER.24 PO (21:27)
[2022-06-10 08:52] VITALS: BP 121/60; PULSE 99; RESP 16; TEMP 36.6; O2SAT 97
[2022-06-10] MEDS: Nitrofurantoin Monohyd/M-Cryst 100 MG CAPSULE PO ×2 (09:48→21:22)
--- NOTE | 2022-06-10 15:02 | P.PNPSI_ITS ---
Subjective Subjective Date of Service: 06/10/22 Reason For Visit: psychosis Interim History: pt seems improved today, acknowledges having been living out of her car. states she had been working at [employer]. ambivalent re her own mental illness, saying things such as she was behaving in a schizophrenic way, but when asked directly if she has a mental illness she denies. describes her mood today as a 10, 10 being happiest ever. states she plans to discharge to her grandfather's house. per collateral, this man is not her grandfather. she states she has lived with him in the past for several months. per collateral from , he is willing to take her in and has a room for her. 3-day notice matures tomorrow. Mental Status Exam Mental Status Exam Narrative: Appearance: casually groomed, fair hygiene in NAD Behavior:guarded psychomotor: calm, no agitation Speech: clear, regular rate/rhythm, spontaneous Thought process: generally linear, but vague and evasive Thought content: staying with grandfather Mood: improved Affect: flexible SI:none expressed HI:none expressed AVH: none expressed Insight/judgment:impaired Memory/cog: alert, impaired secondary to psychiatric symptoms. Diagnostics Vital Signs (24Hr): Vital Signs - 24 hr 06/09/22 20:05 06/10/22 08:52 Temperature 98.1 F 97.9 F Pulse Rate 105 H 99 Respiratory Rate 16 16 Blood Pressure 130/56 L 121/60 Pulse Oximetry 99 97 Oxygen Delivery Method Room Air Room Air BMI result Body Mass Index 19.5 Labs Results: 06/05/22 05:03 06/07/22 09:03 Medications Medications Current Medications Acetaminophen (Acetaminophen 325 Mg Tablet) 650 mg PO Q6H PRN PRN Reason: Headache/Pain Mild Scale (1-3) Al Hydroxide/Mg Hydroxide (Magnesium Hydrox/Alum Hydrox 30 Ml Oral.Susp) 30 ml PO Q6H PRN PRN Reason: Heartburn/Nausea Hydroxyzine HCl (Hydroxyzine Hcl 50 Mg Tablet) 50 mg PO Q6H PRN PRN Reason: Anxiety Lorazepam (Lorazepam 1 Mg Tablet) 1 mg PO Q6H PRN PRN Reason: anxiety/agitation Last Admin: 06/05/22 19:05 Dose: 1 mg Magnesium Hydroxide (Milk Of Magnesia 30 Ml Oral.Susp) 30 ml PO DAILY PRN PRN Reason: Constipation Nitrofurantoin Macrocrystals (Nitrofurantoin Monohyd/M-Cryst 100 Mg Capsule) 100 mg PO BID KATHY Stop: 06/12/22 09:24 Last Admin: 06/10/22 09:48 Dose: 100 mg Olanzapine (Olanzapine Odt 10 Mg Tab.Rapdis) 10 mg TRANSLINGU Q6H PRN PRN Reason: agitation Last Admin: 06/05/22 19:04 Dose: 10 mg Paliperidone (Paliperidone Er 6 Mg Tab.Er.24) 6 mg PO BEDTIME KATHY Last Admin: 06/09/22 21:27 Dose: 6 mg Trazodone HCl (Trazodone Hcl 50 Mg Tablet) 50 mg PO BEDTIME PRN PRN Reason: Insomnia Allergies Allergies Allergy/AdvReac Type Severity Reaction Status Date / Time No Known Allergies Allergy Verified 06/05/22 03:55 Assessment & Plan Assessment & Plan (1) Schizophrenia: Status: Acute Code(s): F20.9 - Schizophrenia, unspecified (2) Acute UTI: Status: Acute Code(s): N39.0 - Urinary tract infection, site not specified Plan Yolette is a 21 y.o. woman with a hx of of schizophrenia who was brought on [address] by police after her car was towed due to not having her registration and pt presenting as paranoid and disorganized stating that she had been kidnapped by [employer] back in December and now they are following her. In the ED, utox positive for cannabinoids. Found to have a UTI. Has not been on psych meds x 2 years. Plan: will try paliperidone, prn olanzapine for agitation- started in ED setting. Q15 min safety checks, CV Monitor response to medications. Monitor for safety in the milieu. Discharge on stabilization. Patient seen. Chart reviewed. Discussed with team. Obtain collateral contact info?as needed 06/07 continue current tx. 06/08: continue current mgmt, paliperidone 6 mg QHS. 06/09: continue current mgmt. contact grandfather for collateral/dispo planning. 06/10: med-compliant, continue current medications. grandfather is not her actual grandfather; safety of discharge to his care is in question. refusing to sign ROBINSON for her mother. 3-day matures tomorrow. case to be followed by David as David has been more involved in pt's care to this date than has this fiction and nonfiction prose writer. I spent __25____ minutes with the patient and/or on the patient floor today, greater than?50% of which was spent counseling/coordinating care. Reason for contiued inpatient stay Substantial Risk for: inability to function and rapid decompensation
[2022-06-10 20:15] VITALS: BP 109/56; PULSE 103; RESP 18; TEMP 36.6; O2SAT 98
[2022-06-10] MEDS: Paliperidone ER 6 MG TAB.ER.24 PO (21:22)
[2022-06-11 09:27] VITALS: BP 111/69; PULSE 114; RESP 18; TEMP 36.7; O2SAT 100
[2022-06-11] MEDS: Nitrofurantoin Monohyd/M-Cryst 100 MG CAPSULE PO ×2 (09:28→21:24)
[2022-06-11 11:18] LABS: COVID-19 Test Negative (Negative)
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
[2022-06-11 16:02] LABS: C Reactive Protein < 0.02 mg/dL (< or = 0.50)
[2022-06-11 16:32] LABS: Erythrocyte Sedimentation Rate 3 MM/HR (0-20)
[2022-06-11] MEDS: Paliperidone ER 9 MG TAB.ER.24 PO (21:24)
[2022-06-11 21:25] VITALS: BP 120/61; PULSE 103; TEMP 36.7; O2SAT 95
[2022-06-12 08:00] VITALS: BP 107/55; PULSE 88; RESP 16; TEMP 36.7; O2SAT 96
[2022-06-12] MEDS: Nitrofurantoin Monohyd/M-Cryst 100 MG CAPSULE PO (08:05)
--- NOTE | 2022-06-12 09:56 | P.PNPSI_ITS ---
Subjective Subjective Date of Service: 06/13/22 Reason For Visit: psychosis Subjective Notes: Section 7 Interim History: Pt guarded and superficial. She denies SI/HI. She denies VH/AH. Pt appears not fully forthcoming in terms of extend of delusional content. Per nursing, pt slept through the night. Mostly in bed, presents as disheveled, hypervigilant and guarded. 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 SI:none expressed HI:none expressed Delusions: persecutory/paranoid delusions AVH: none expressed Insight/judgment:impaired Memory/cog: alert, impaired secondary to psychiatric symptoms. Diagnostics Vital Signs (24Hr): Vital Signs - 24 hr 06/13/22 17:20 06/14/22 08:57 Temperature 98.3 F 98.1 F Pulse Rate 94 85 Respiratory Rate 16 17 Blood Pressure 116/57 L 107/53 L Pulse Oximetry 98 96 Oxygen Delivery Method Room Air Room Air BMI result Body Mass Index 22.8 Labs Results: 06/05/22 05:03 06/07/22 09:03 Labs: Laboratory Results - last 48 hr 06/11/22 06/11/22 06/11/22 15:40 15:40 15:40 Free T3 3.3 Thyroglobulin Antibody <1 Thyroid Peroxidase Ab 1 Medications Medications Current Medications Acetaminophen (Acetaminophen 325 Mg Tablet) 650 mg PO Q6H PRN PRN Reason: Headache/Pain Mild Scale (1-3) Al Hydroxide/Mg Hydroxide (Magnesium Hydrox/Alum Hydrox 30 Ml Oral.Susp) 30 ml PO Q6H PRN PRN Reason: Heartburn/Nausea Hydroxyzine HCl (Hydroxyzine Hcl 50 Mg Tablet) 50 mg PO Q6H PRN PRN Reason: Anxiety Lorazepam (Lorazepam 1 Mg Tablet) 1 mg PO Q6H PRN PRN Reason: anxiety/agitation Last Admin: 06/05/22 19:05 Dose: 1 mg Magnesium Hydroxide (Milk Of Magnesia 30 Ml Oral.Susp) 30 ml PO DAILY PRN PRN Reason: Constipation Olanzapine (Olanzapine Odt 10 Mg Tab.Rapdis) 10 mg TRANSLINGU Q6H PRN PRN Reason: agitation Last Admin: 06/05/22 19:04 Dose: 10 mg Paliperidone (Paliperidone Er 9 Mg Tab.Er.24) 9 mg PO BEDTIME KATHY Last Admin: 06/13/22 20:45 Dose: 9 mg Trazodone HCl (Trazodone Hcl 50 Mg Tablet) 50 mg PO BEDTIME PRN PRN Reason: Insomnia Allergies Allergies Allergy/AdvReac Type Severity Reaction Status Date / Time No Known Allergies Allergy Verified 06/05/22 03:55 Assessment & Plan Assessment & Plan (1) Schizophrenia: Status: Acute Code(s): F20.9 - Schizophrenia, unspecified (2) Acute UTI: Status: Acute Code(s): N39.0 - Urinary tract infection, site not specified Plan Yolette is a 21 y.o. woman with a hx of of schizophrenia who was brought [place] [address] [place] police after her car was towed due to not having her registration and pt presenting as paranoid and disorganized stating that she had been kidnapped by [employer] back in December and now they are following her. In the ED, utox positive for cannabinoids. Found to have a UTI. Has not been on psych meds x 2 years. Plan: will try paliperidone, prn olanzapine for agitation- started in ED s etting. Q15 min safety checks, CV Monitor response to medications. Monitor for safety in the milieu. Discharge on stabilization. Patient seen. Chart reviewed. Discussed with team. Obtain collateral contact info?as needed 06/07 continue current tx. 06/08: continue current mgmt, paliperidone 6 mg QHS. 06/09: continue current mgmt. contact grandfather for collateral/dispo planning. 06/10: med-compliant, continue current medications. grandfather is not her actual grandfather; safety of discharge to his care is in question. refusing to sign ROBINSON for her mother. 3-day matures tomorrow. case to be followed by David, as David has been more involved in pt's care to this date than has this teletypewriter installer. 06/11 file for involuntary commitment, some improvement in persecutory delusions and sligtly more organized speech. insight continues to be impaired in that she is still thinks she has to run away in car to prevent being abducted by [employer]. 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 Increase paliperidone to 9mg po qhs. Pt questions whether biological mother is truly her mother and whether biofather is her father. Collateral information from mother who expresses her concern in terms of pt living in car and moving around due to paranoia, potential harm from others, specially sexually as pt tends to have idea that she has to be sexually active against her will to stop [employer] from taking her. 06/12 continue tx. I spent minutes with the patient and/or on the patient floor today, greater than?50% of which was spent counseling/coordinating care. Reason for contiued inpatient stay Substantial Risk for: inability to function
[2022-06-12 21:38] VITALS: BP 115/71; PULSE 103; RESP 16; TEMP 36.1; O2SAT 99
[2022-06-12] MEDS: Paliperidone ER 9 MG TAB.ER.24 PO (21:43)
[2022-06-13 06:06] LABS: Triiodothyronine T3 Free 3.3 pg/mL (2.3-4.2)
[2022-06-13 06:12] LABS: Thyroid Peroxidase Antibodies 1 IU/mL (<9)
[2022-06-13 07:00] VITALS: BMI 22.8
[2022-06-13 08:30] VITALS: BP 107/58; PULSE 102; RESP 18; TEMP 36.6; O2SAT 95
--- NOTE | 2022-06-13 10:05 | HO.PSYCHPN ---
Subjective Subjective Date of Service: 06/13/22 Reason For Visit: psychosis Subjective Notes: Section 7 Interim History: Pt continues to present as guarded, mostly in bed. She has agreed to take medications, denies side effects. Pt states she will just stay with first man she sees. She reports that by keeping her here, her only options are to find any man. She continues to report that she needs car as it protects her. No SI/HI. 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 SI:none expressed HI:none expressed Delusions: persecutory/paranoid delusions AVH: none expressed Insight/judgment:impaired Memory/cog: alert, impaired secondary to psychiatric symptoms. Diagnostics Vital Signs (24Hr): Vital Signs - 24 hr 06/13/22 17:20 06/14/22 08:57 Temperature 98.3 F 98.1 F Pulse Rate 94 85 Respiratory Rate 16 17 Blood Pressure 116/57 L 107/53 L Pulse Oximetry 98 96 Oxygen Delivery Method Room Air Room Air BMI result Body Mass Index 22.8 Labs Results: 06/05/22 05:03 06/07/22 09:03 Labs: Laboratory Results - last 48 hr 06/11/22 06/11/22 06/11/22 15:40 15:40 15:40 Free T3 3.3 Thyroglobulin Antibody <1 Thyroid Peroxidase Ab 1 Medications Medications Current Medications Acetaminophen (Acetaminophen 325 Mg Tablet) 650 mg PO Q6H PRN PRN Reason: Headache/Pain Mild Scale (1-3) Al Hydroxide/Mg Hydroxide (Magnesium Hydrox/Alum Hydrox 30 Ml Oral.Susp) 30 ml PO Q6H PRN PRN Reason: Heartburn/Nausea Hydroxyzine HCl (Hydroxyzine Hcl 50 Mg Tablet) 50 mg PO Q6H PRN PRN Reason: Anxiety Lorazepam (Lorazepam 1 Mg Tablet) 1 mg PO Q6H PRN PRN Reason: anxiety/agitation Last Admin: 06/05/22 19:05 Dose: 1 mg Magnesium Hydroxide (Milk Of Magnesia 30 Ml Oral.Susp) 30 ml PO DAILY PRN PRN Reason: Constipation Olanzapine (Olanzapine Odt 10 Mg Tab.Rapdis) 10 mg TRANSLINGU Q6H PRN PRN Reason: agitation Last Admin: 06/05/22 19:04 Dose: 10 mg Paliperidone (Paliperidone Er 9 Mg Tab.Er.24) 9 mg PO BEDTIME KATHY Last Admin: 06/13/22 20:45 Dose: 9 mg Trazodone HCl (Trazodone Hcl 50 Mg Tablet) 50 mg PO BEDTIME PRN PRN Reason: Insomnia Allergies Allergies Allergy/AdvReac Type Severity Reaction Status Date / Time No Known Allergies Allergy Verified 06/05/22 03:55 Assessment & Plan Assessment & Plan (1) Schizophrenia: Status: Acute Code(s): F20.9 - Schizophrenia, unspecified (2) Acute UTI: Status: Acute Code(s): N39.0 - Urinary tract infection, site not specified Plan oYlette is a 21 y.o. woman with a hx of of schizophrenia who was brought on [address] by police after her car was towed due to not having her registration and pt presenting as paranoid and disorganized stating that she had been kidnapped by [employer] back in December and now they are following her. In the ED, utox positive for cannabinoids. Found to have a UTI. Has not been on psych meds x 2 years. Plan: will try paliperidone, prn olanzapine for agitation- started in ED setting. Q15 min safety checks, CV Monitor response to medications. Monitor for safety in the milieu. Discharge on stabilization. Patient seen. Chart reviewed. Discussed with team. Obtain collateral contact info?as needed 06/07 continue current tx. 06/08: continue current mgmt, paliperidone 6 mg QHS. 06/09: continue current mgmt. contact grandfather for collateral/dispo planning. 06/10: med-compliant, continue current medications. grandfather is not her actual grandfather; safety of discharge to his care is in question. refusing to sign ROBINSON for her mother. 3-day matures tomorrow. case to be followed by David, as David has been more involved in pt's care to this date than has this com writer. 06/11 file for involuntary commitment, some improvement in persecutory delusions and sligtly more organized speech. insight continues to be impaired in that she is still thinks she has to run away in car to prevent being abducted by [employer]. 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 Increase paliperidone to 9mg po qhs. Pt questions whether biological mother is truly her mother and whether biofather is her father. Collateral information from mother who expresses her concern in terms of pt living in car and moving around due to paranoia, potential harm from others, specially sexually as pt tends to have idea that she has to be sexually active against her will to stop [employer] from taking her. 06/12 continue tx. 06/13 continue tx. I spent minutes with the patient and/or on the patient floor today, greater than?50% of which was spent counseling/coordinating care. Reason for contiued inpatient stay Substantial Risk for: inability to function
[2022-06-13 17:20] VITALS: BP 116/57; PULSE 94; RESP 16; TEMP 36.8; O2SAT 98
[2022-06-13 19:22] LABS: Thyroglobulin Antibodies <1 IU/mL (< or = 1)
[2022-06-13] MEDS: Paliperidone ER 9 MG TAB.ER.24 PO (20:45)
[2022-06-14 08:57] VITALS: BP 107/53; PULSE 85; RESP 17; TEMP 36.7; O2SAT 96
--- NOTE | 2022-06-14 12:10 | P.PNPSI_ITS ---
Subjective Subjective Date of Service: 06/14/22 Reason For Visit: psychosis Subjective Notes: Section 7 Interim History: Pt continues to reports that she is here in the hospital because transit police officer was from the [facility]. 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 Pt denies SI/HI. She reports she has to be in car to run away, no acknowledgement that her car has no registration. Pt asked this screenplay writer to contact her employer- employer reports he has been concerned about her as she did not appear to function well, appeared disheveled, paranoid, poor concentration, unable to follow simple instructions or commands. He reports she is not safe to return to work the way she was functioning. Medication Compliance: Yes Side effects from medications: No Review of Systems Review of Systems CVS: No c/o chest pain, palpitations, no SOB CARE TRANSPORT NURSE: No c/o dizziness, headache GI: No c/o Nausea, Vomiting, diarrhea, constipation or heartburn Yes all other systems are reviewed and are negative Mental Status Exam Mental Status Exam Narrative: Appearance: casually groomed, fair hygiene in NAD Behavior:guarded psychomotor: calm, no agitation Speech: clear, regular rate/rhythm, spontaneous Thought process: generally linear, but vague and evasive Thought content: wanting to be discharged, fear of staying longer or losing car Mood: good Affect: guarded, increasingly more agitated. SI:none expressed HI:none expressed Delusions: persecutory/paranoid delusions AVH: none expressed Insight/judgment:impaired Memory/cog: alert, impaired secondary to psychiatric symptoms. Diagnostics Vital Signs (24Hr): Vital Signs - 24 hr 06/14/22 08:57 06/14/22 21:02 Temperature 98.1 F 98.1 F Pulse Rate 85 102 H Respiratory Rate 17 16 Blood Pressure 107/53 L 144/59 H Pulse Oximetry 96 98 Oxygen Delivery Method Room Air Room Air BMI result Body Mass Index 22.8 Labs Results: 06/05/22 05:03 06/07/22 09:03 Labs: Laboratory Results - last 48 hr 06/11/22 15:40 Thyroglobulin Antibody <1 Medications Medications Current Medications Acetaminophen (Acetaminophen 325 Mg Tablet) 650 mg PO Q6H PRN PRN Reason: Headache/Pain Mild Scale (1-3) Al Hydroxide/Mg Hydroxide (Magnesium Hydrox/Alum Hydrox 30 Ml Oral.Susp) 30 ml PO Q6H PRN PRN Reason: Heartburn/Nausea Hydroxyzine HCl (Hydroxyzine Hcl 50 Mg Tablet) 50 mg PO Q6H PRN PRN Reason: Anxiety Magnesium Hydroxide (Milk Of Magnesia 30 Ml Oral.Susp) 30 ml PO DAILY PRN PRN Reason: Constipation Olanzapine (Olanzapine Odt 10 Mg Tab.Rapdis) 10 mg TRANSLINGU Q6H PRN PRN Reason: agitation Last Admin: 06/05/22 19:04 Dose: 10 mg Paliperidone (Paliperidone Er 9 Mg Tab.Er.24) 9 mg PO BEDTIME KATHY Last Admin: 06/14/22 21:52 Dose: 9 mg Trazodone HCl (Trazodone Hcl 50 Mg Tablet) 50 mg PO BEDTIME PRN PRN Reason: Insomnia Allergies Allergies Allergy/AdvReac Type Severity Reaction Status Date / Time No Known Allergies Allergy Verified 06/05/22 03:55 Assessment & Plan Assessment & Plan (1) Schizophrenia: Status: Acute Code(s): F20.9 - Schizophrenia, unspecified (2) Acute UTI: Status: Acute Code(s): N39.0 - Urinary tract infection, site not specified Plan Yolette is a 21 y.o. woman with a hx of of schizophrenia who was brought on [address] by police after her car was towed due to not having her registration and pt presenting as paranoid and disorganized stating that she had been kidnapped by [employer] back in December and now they are following her. In the ED, utox positive for cannabinoids. Found to have a UTI. Has not been on psych meds x 2 years. Plan: will try paliperidone, prn olanzapine for agitation- started in ED s etting. Q15 min safety checks, CV Monitor response to medications. Monitor for safety in the milieu. Discharge on stabilization. Patient seen. Chart reviewed. Discussed with team. Obtain collateral contact info?as needed 06/07 continue current tx. 06/08: continue current mgmt, paliperidone 6 mg QHS. 06/09: continue current mgmt. contact grandfather for collateral/dispo planning. 06/10: med-compliant, continue current medications. grandfather is not her actual grandfather; safety of discharge to his care is in question. refusing to sign ROBINSON for her mother. 3-day matures tomorrow. case to be followed by David, as David has been more involved in pt's care to this date than has this screenplay writer. 06/11 file for involuntary commitment, some improvement in persecutory delusions and sligtly more organized speech. insight continues to be impaired in that she is still thinks she has to run away in car to prevent being abducted by [employer]. 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 Increase paliperidone to 9mg po qhs. Pt questions whether biological mother is truly her mother and whether biofather is her father. Collateral information from mother who expresses her concern in terms of pt living in car and moving around due to paranoia, potential harm from others, specially sexually as pt tends to have idea that she has to be sexually active against her will to stop [employer] from taking her. 06/12 continue tx. 06/13 continue tx. 06/14 continue tx. I spent minutes with the patient and/or on the patient floor today, greater than?50% of which was spent counseling/coordinating care. Reason for contiued inpatient stay Substantial Risk for: inability to function
[2022-06-14 21:02] VITALS: BP 144/59; PULSE 102; RESP 16; TEMP 36.7; O2SAT 98
[2022-06-14] MEDS: Paliperidone ER 9 MG TAB.ER.24 PO (21:52)
[2022-06-15 08:15] VITALS: BP 98/59; PULSE 96; RESP 18; TEMP 36.8; O2SAT 96
--- NOTE | 2022-06-15 09:02 | HO.PSYCHPN ---
Subjective Subjective Date of Service: 06/15/22 Reason For Visit: psychosis Subjective Notes: Section 7 Healthcare Proxy: No Medical Problems Affecting Mental Status: No Interim History: Patient was seen and discussed in rounds today. Records and plans were reviewed. She continues to be isolative and withdrawn. She has been med compliant. No complaints or side effects. She continues to be delusional and has very little sense about her level of dysfunction. No SI. No changes were made. Eating and sleeping adequately Medication Compliance: Yes Side effects from medications: No Attending Groups: Intermittent Review of Systems Review of Systems Yes all other systems are reviewed and are negative Mental Status Exam Mental Status Exam Narrative: In today's visit she is alert, oriented and pleasant. Normal speech. Minimal eye contact. Affect is appropriate and guarded. No auditory or visual hallucinations. Paranoid ideations and delusions present and reported. Thought processes are goal directed put vague. No SI. Judgment is marginal Diagnostics Vital Signs (24Hr): Vital Signs - 24 hr 06/14/22 21:02 Temperature 98.1 F Pulse Rate 102 H Respiratory Rate 16 Blood Pressure 144/59 H Pulse Oximetry 98 Oxygen Delivery Method Room Air BMI result Body Mass Index 22.8 Labs Results: 06/05/22 05:03 06/07/22 09:03 Labs: Laboratory Results - last 48 hr 06/11/22 15:40 Thyroglobulin Antibody <1 Medications Medications Current Medications Acetaminophen (Acetaminophen 325 Mg Tablet) 650 mg PO Q6H PRN PRN Reason: Headache/Pain Mild Scale (1-3) Al Hydroxide/Mg Hydroxide (Magnesium Hydrox/Alum Hydrox 30 Ml Oral.Susp) 30 ml PO Q6H PRN PRN Reason: Heartburn/Nausea Hydroxyzine HCl (Hydroxyzine Hcl 50 Mg Tablet) 50 mg PO Q6H PRN PRN Reason: Anxiety Magnesium Hydroxide (Milk Of Magnesia 30 Ml Oral.Susp) 30 ml PO DAILY PRN PRN Reason: Constipation Olanzapine (Olanzapine Odt 10 Mg Tab.Rapdis) 10 mg TRANSLINGU Q6H PRN PRN Reason: agitation Last Admin: 06/05/22 19:04 Dose: 10 mg Paliperidone (Paliperidone Er 9 Mg Tab.Er.24) 9 mg PO BEDTIME KATHY Last Admin: 06/14/22 21:52 Dose: 9 mg Trazodone HCl (Trazodone Hcl 50 Mg Tablet) 50 mg PO BEDTIME PRN PRN Reason: Insomnia Allergies Allergies Allergy/AdvReac Type Severity Reaction Status Date / Time No Known Allergies Allergy Verified 06/05/22 03:55 Assessment & Plan Assessment & Plan (1) Schizophrenia: Status: Acute Code(s): F20.9 - Schizophrenia, unspecified (2) Acute UTI: Status: Acute Code(s): N39.0 - Urinary tract infection, site not specified Plan Yolette is a 21 y.o. woman with a hx of of schizophrenia who was brought on [address] by police after her car was towed due to not having her registration and pt presenting as paranoid and disorganized stating that she had been kidnapped by [employer] back in December and now they are following her. In the ED, utox positive for cannabinoids. Found to have a UTI. Has not been on psych meds x 2 years. Plan: will try paliperidone, prn olanzapine for agitation- started in ED setting. Q15 min safety checks, CV Monitor response to medications. Monitor for safety in the milieu. Discharge on stabilization. Patient seen. Chart reviewed. Discussed with team. Obtain collateral contact info?as needed 06/07 continue current tx. 06/08: continue current mgmt, paliperidone 6 mg QHS. 06/09: continue current mgmt. contact grandfather for collateral/dispo planning. 06/10: med-compliant, continue current medications. grandfather is not her actual grandfather; safety of discharge to his care is in question. refusing to sign ROBINSON for her mother. 3-day matures tomorrow. case to be followed by David, as David has been more involved in pt's care to this date than has this teletypewriter installer. 06/11 file for involuntary commitment, some improvement in persecutory delusions and sligtly more organized speech. insight continues to be impaired in that she is still thinks she has to run away in car to prevent being abducted by [employer]. 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 Increase paliperidone to 9mg po qhs. Pt questions whether biological mother is truly her mother and whether biofather is her father. Collateral information from mother who expresses her concern in terms of pt living in car and moving around due to paranoia, potential harm from others, specially sexually as pt tends to have idea that she has to be sexually active against her will to stop [employer] from taking her. 06/12 continue tx. 06/13 continue tx. 06/14 continue tx. 06/15: Continue current regimen and plans I spent minutes with the patient and/or on the patient floor today, greater than?50% of which was spent counseling/coordinating care. Reason for contiued inpatient stay Substantial Risk for: med/psych decompensation
[2022-06-15 20:00] VITALS: BP 109/62; PULSE 89; RESP 16; TEMP 36.8; O2SAT 100
[2022-06-15] MEDS: Paliperidone ER 9 MG TAB.ER.24 PO (20:10)
[2022-06-16 06:00] VITALS: BP 102/59; PULSE 91; RESP 16; TEMP 36.8; O2SAT 97
[2022-06-16 08:52] LABS: Anti Nuclear Antibody Screen NEGATIVE (NEGATIVE)
--- NOTE | 2022-06-16 09:29 | P.PNPSI_ITS ---
Subjective Subjective Date of Service: 06/16/22 Reason For Visit: psychosis Subjective Notes: Section 7 Healthcare Proxy: No Medical Problems Affecting Mental Status: No Interim History: Patient was seen and discussed in rounds today. Records and plans were reviewed. She continues to be mostly in her room and after talking to her more than the initial encounter she does have paranoid ideations and delusions. She has been medication compliant. No complaints or side effects. No changes were made today. No SI Medication Compliance: Yes Side effects from medications: No Attending Groups: Intermittent Review of Systems Review of Systems Yes all other systems are reviewed and are negative Mental Status Exam Mental Status Exam Narrative: In today's visit she is alert, oriented and pleasant. Soft-spoken speech. Minimal eye contact. Affect is appropriate and guarded. No auditory or visual hallucinations. Paranoid ideations and delusions present and reported. Thought processes are goal directed put vague. No SI. Judgment is marginal Diagnostics Vital Signs (24Hr): Vital Signs - 24 hr 06/15/22 20:00 Temperature 98.2 F Pulse Rate 89 Respiratory Rate 16 Blood Pressure 109/62 Pulse Oximetry 100 Oxygen Delivery Method Room Air BMI result Body Mass Index 22.8 Labs Results: 06/05/22 05:03 06/07/22 09:03 Labs: Laboratory Results - last 48 hr 06/11/22 15:40 BLANCA Screen NEGATIVE Medications Medications Current Medications Acetaminophen (Acetaminophen 325 Mg Tablet) 650 mg PO Q6H PRN PRN Reason: Headache/Pain Mild Scale (1-3) Al Hydroxide/Mg Hydroxide (Magnesium Hydrox/Alum Hydrox 30 Ml Oral.Susp) 30 ml PO Q6H PRN PRN Reason: Heartburn/Nausea Hydroxyzine HCl (Hydroxyzine Hcl 50 Mg Tablet) 50 mg PO Q6H PRN PRN Reason: Anxiety Magnesium Hydroxide (Milk Of Magnesia 30 Ml Oral.Susp) 30 ml PO DAILY PRN PRN Reason: Constipation Olanzapine (Olanzapine Odt 10 Mg Tab.Rapdis) 10 mg TRANSLINGU Q6H PRN PRN Reason: agitation Last Admin: 06/05/22 19:04 Dose: 10 mg Paliperidone (Paliperidone Er 9 Mg Tab.Er.24) 9 mg PO BEDTIME KATHY Last Admin: 06/15/22 20:10 Dose: 9 mg Trazodone HCl (Trazodone Hcl 50 Mg Tablet) 50 mg PO BEDTIME PRN PRN Reason: Insomnia Allergies Allergies Allergy/AdvReac Type Severity Reaction Status Date / Time No Known Allergies Allergy Verified 06/05/22 03:55 Assessment & Plan Assessment & Plan (1) Schizophrenia: Status: Acute Code(s): F20.9 - Schizophrenia, unspecified (2) Acute UTI: Status: Acute Code(s): N39.0 - Urinary tract infection, site not specified Plan Yolette is a 21 y.o. woman with a hx of of schizophrenia who was brought on [address] by police after her car was towed due to not having her registration and pt presenting as paranoid and disorganized stating that she had been kidnapped by [employer] back in December and now they are following her. In the ED, utox positive for cannabinoids. Found to have a UTI. Has not been on psych meds x 2 years. Plan: will try paliperidone, prn olanzapine for agitation- started in ED setting. Q15 min safety checks, CV Monitor response to medications. Monitor for safety in the milieu. Discharge on stabilization. Patient seen. Chart reviewed. Discussed with team. Obtain collateral contact info?as needed 06/07 continue current tx. 06/08: continue current mgmt, paliperidone 6 mg QHS. 06/09: continue current mgmt. contact grandfather for collateral/dispo planning. 06/10: med-compliant, continue current medications. grandfather is not her actual grandfather; safety of discharge to his care is in question. refusing to sign RBOINSON for her mother. 3-day matures tomorrow. case to be followed by David, as David has been more involved in pt's care to this date than has this marketing copywriter. 06/11 file for involuntary commitment, some improvement in persecutory delusions and sligtly more organized speech. insight continues to be impaired in that she is still thinks she has to run away in car to prevent being abducted by [employer]. 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 Increase paliperidone to 9mg po qhs. Pt questions whether biological mother is truly her mother and whether biofather is her father. Collateral information from mother who expresses her concern in terms of pt living in car and moving around due to paranoia, potential harm from others, specially sexually as pt tends to have idea that she has to be sexually active against her will to stop [employer] from taking her. 06/12 continue tx. 06/13 continue tx. 06/14 continue tx. 06/15: Continue current regimen and plans 06/16: Continue current plans and regimen I spent minutes with the patient and/or on the patient floor today, greater than?50% of which was spent counseling/coordinating care. Reason for contiued inpatient stay Substantial Risk for: med/psych decompensation
[2022-06-16] MEDS: Paliperidone ER 9 MG TAB.ER.24 PO (21:37)
[2022-06-17 09:58] VITALS: BP 98/57; PULSE 93; RESP 15; TEMP 36.6; O2SAT 97
--- NOTE | 2022-06-17 12:19 | P.PNPSI_ITS ---
Subjective Subjective Date of Service: 06/17/22 Reason For Visit: psychosis Subjective Notes: Section 7 Interim History: Pt guarded, superficially cooperative. 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 Pt reports she was able to register car, but unable to verify this. She denies SI/HI. She appears disheveled, mostly in bed. No social with peers. pt sleeping through the night, limited insight into mental illness and need for ongoing tx. Medication Compliance: Yes Side effects from medications: No Review of Systems Review of Systems CVS: No c/o chest pain, palpitations, no SOB CALCULUS TEACHER: No c/o dizziness, headache GI: No c/o Nausea, Vomiting, diarrhea, constipation or heartburn Yes all other systems are reviewed and are negative Mental Status Exam Mental Status Exam Narrative: Appearance: casually groomed, fair hygiene in NAD Behavior:guarded psychomotor: calm, no agitation Speech: clear, regular rate/rhythm, spontaneous Thought process: generally linear, but vague and evasive Thought content: wanting to be discharged, fear of staying longer or losing car Mood: good Affect: guarded, increasingly more agitated. SI:none expressed HI:none expressed Delusions: persecutory/paranoid delusions AVH: none expressed Insight/judgment:impaired Memory/cog: alert, impaired secondary to psychiatric symptoms. Diagnostics Vital Signs (24Hr): Vital Signs - 24 hr 06/17/22 09:58 06/17/22 21:35 Temperature 97.9 F 96.7 F L Pulse Rate 93 104 H Respiratory Rate 15 16 Blood Pressure 98/57 L 118/67 Pulse Oximetry 97 98 Oxygen Delivery Method Room Air Room Air BMI result Body Mass Index 22.8 Labs Results: 06/05/22 05:03 06/07/22 09:03 Labs: Laboratory Results - last 48 hr 06/11/22 15:40 BLANAC Titer TNP BLANCA Titer 2 TNP BLANCA Titer 3 TNP BLANCA Pattern TNP BLANCA Pattern 2 TNP BLANCA Pattern 3 TNP Medications Medications Current Medications Acetaminophen (Acetaminophen 325 Mg Tablet) 650 mg PO Q6H PRN PRN Reason: Headache/Pain Mild Scale (1-3) Al Hydroxide/Mg Hydroxide (Magnesium Hydrox/Alum Hydrox 30 Ml Oral.Susp) 30 ml PO Q6H PRN PRN Reason: Heartburn/Nausea Hydroxyzine HCl (Hydroxyzine Hcl 50 Mg Tablet) 50 mg PO Q6H PRN PRN Reason: Anxiety Magnesium Hydroxide (Milk Of Magnesia 30 Ml Oral.Susp) 30 ml PO DAILY PRN PRN Reason: Constipation Olanzapine (Olanzapine Odt 10 Mg Tab.Rapdis) 10 mg TRANSLINGU Q6H PRN PRN Reason: agitation Last Admin: 06/05/22 19:04 Dose: 10 mg Paliperidone (Paliperidone Er 9 Mg Tab.Er.24) 9 mg PO BEDTIME KATHY Last Admin: 06/17/22 21:37 Dose: 9 mg Trazodone HCl (Trazodone Hcl 50 Mg Tablet) 50 mg PO BEDTIME PRN PRN Reason: Insomnia Allergies Allergies Allergy/AdvReac Type Severity Reaction Status Date / Time No Known Allergies Allergy Verified 06/05/22 03:55 Assessment & Plan Assessment & Plan (1) Schizophrenia: Status: Acute Code(s): F20.9 - Schizophrenia, unspecified (2) Acute UTI: Status: Acute Code(s): N39.0 - Urinary tract infection, site not specified Plan Yolette is a 21 y.o. woman with a hx of of schizophrenia who was brought on [address] by police after her car was towed due to not having her registration and pt presenting as paranoid and disorganized stating that she had been kidnapped by [employer] back in December and now they are following her. In the ED, utox positive for cannabinoids. Found to have a UTI. Has not been on psych meds x 2 years. Plan: will try paliperidone, prn olanzapine for agitation- started in ED setting. Q15 min safety checks, CV Monitor response to medications. Monitor for safety in the milieu. Discharge on stabilization. Patient seen. Chart reviewed. Discussed with team. Obtain collateral contact info?as needed 06/07 continue current tx. 06/08: continue current mgmt, paliperidone 6 mg QHS. 06/09: continue current mgmt. contact grandfather for collateral/dispo planning. 06/10: med-compliant, continue current medications. grandfather is not her actual grandfather; safety of discharge to his care is in question. refusing to sign ROBINSON for her mother. 3-day matures tomorrow. case to be followed by David, as David has been more involved in pt's care to this date than has this signwriter. 06/11 file for involuntary commitment, some improvement in persecutory delusions and sligtly more organized speech. insight continues to be impaired in that she is still thinks she has to run away in car to prevent being abducted by [employer]. 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 Increase paliperidone to 9mg po qhs. Pt questions whether biological mother is truly her mother and whether biofather is her father. Collateral information from mother who expresses her concern in terms of pt living in car and moving around due to paranoia, potential harm from others, specially sexually as pt tends to have idea that she has to be sexually active against her will to stop [employer] from taking her. 06/12 continue tx. 06/13 continue tx. 06/14 continue tx. 06/15: Continue current regimen and plans 06/16: Continue current plans and regimen 06/17 continue tx. I spent minutes with the patient and/or on the patient floor today, gr eater than?50% of which was spent counseling/coordinating care. Reason for contiued inpatient stay Substantial Risk for: inability to function
[2022-06-17 21:35] VITALS: BP 118/67; PULSE 104; RESP 16; TEMP 35.9; O2SAT 98
[2022-06-17] MEDS: Paliperidone ER 9 MG TAB.ER.24 PO (21:37)
[2022-06-18 08:20] VITALS: BP 102/59; PULSE 82; RESP 18; TEMP 36.6
--- NOTE | 2022-06-18 12:24 | PM.PSYDC ---
DS: Providers Provider Date of Service: 06/18/22 Date of admission: 06/06/22 14:45 Primary care physician: Unknown Physician DS: Diagnosis Discharge Diagnosis (1) Schizophrenia: Status: Acute (2) Acute UTI: Status: Deleted DS: Medications Discharge Medications Home Medications: Previous Rx's Medication Instructions Recorded paliperidone 6 mg tablet,extended 6 mg PO DAILY #30 tabs 06/18/22 release 24 hr (Invega) Mental Status Exam Mental Status Exam Narrative: Appearance: casually groomed, fair hygiene in NAD Behavior:less guarded psychomotor: calm, no agitation Speech: clear, regular rate/rhythm, spontaneous Thought process: generally linear, but vague and evasive Thought content: wanting to be discharged, fear of staying longer or losing car Mood: good Affect: less fearful SI:none expressed HI:none expressed Delusions: less persecutory/paranoid delusions AVH: none expressed Insight/judgment:impaired Memory/cog: alert, impaired secondary to psychiatric symptoms. Data Data Completed and Pending Completed studies during hospitalization [Text1]: 06/11/22 06/11/22 06/11/22 15:40 15:40 15:40 ESR C-Reactive Protein TSH Cancelled Thyroxine (T4) Free T3 BLANCA Screen BLANCA Titer BLANCA Titer 2 BLANCA Titer 3 BLANCA Pattern BLANCA Pattern 2 BLANCA Pattern 3 Thyroglobulin Antibody <1 Thyroid Peroxidase Ab 1 06/11/22 06/11/22 06/11/22 15:40 15:40 15:40 ESR 3 C-Reactive Protein < 0.02 TSH 1.30 Thyroxine (T4) 7.0 Free T3 3.3 BLANCA Screen BLANCA Titer BLANCA Titer 2 BLANCA Titer 3 BLANCA Pattern BLANCA Pattern 2 BLANCA Pattern 3 Thyroglobulin Antibody Thyroid Peroxidase Ab 06/11/22 15:40 ESR C-Reactive Protein TSH Thyroxine (T4) Free T3 BLANCA Screen NEGATIVE BLANCA Titer TNP BLANCA Titer 2 TNP BLANCA Titer 3 TNP BLANCA Pattern TNP BLANCA Pattern 2 TNP BLANCA Pattern 3 TNP Thyroglobulin Antibody Thyroid Peroxidase Ab DS: Summary Hospital Course Hospital Course: Yolette is a 21 y.o. woman with a hx of of schizophrenia who was brought on [address] by police after her car was towed due to not having her registration and pt presenting as paranoid and disorganized stating that she had been kidnapped by [employer] back in December and now they are following her. In the ED, utox positive for cannabinoids. Per psych consult note: Pt originally from [place]. She drove to [place] to be with her biological father. However, she was not allowed to stay with them. Pt reports she has been hiding from the [facility] who are discriminating against her because she is an descendent. She reports people from the [facility] are after her and trying to force her to be sexually exploited. Pt presents as disheveled, poor hygiene. She reports she is not safe anywhere but in her car. She also reports her car is bullet proof- unclear if this is the case. Care team clinician Yaya Burroughs spoke with her mother, who reports pt left college in December due to paranoid belief that she was being followed by [facility] and has been moving around since then. She has not been on medications for about 2 years. Mother is concerned that pt is not stable and may be taken advantage of. Pt denies SI/HI. She denies VH/AH. I spoke with pt this evening. She reports she is in the hospital because ?I was being depersonalized? by police. Does not appear to be an accurate historian. Says she has been non-adherent on meds x 2-3 years, last took lamictal and zyprexa, says they ?worked beautifully? but she ?broke out in blisters and so I stopped taking them,? had been on them about a year. Says prior to this she was on seroquel and adderall from ages [age] and that this combo ?kept me out of my depressing mood and helped with focus,? not sure why she stopped them. Pt lacks insight into her thought disorder. Says sleep is ?good, very good.? Mood is ?good, decent.? Denies anxiety. Denies SI/SIB. Feels safe. Denies paranoia. Denies hallucinations. Denies alcohol abuse or illicit substance use. Denies sx of PTSD. Past Psychiatric History: Inpatient: few times in the past. OP: none Medical Evaluation Reviewed: Yes HOSPITAL COURSE On the unit, Ms. Cotto was admitted on [address] and placed on 15 minutes checks for safety. Pt reported paranoid delusions related to thinking that [facility] was following her despite her being white. She reported she thought she had to prostitute herself in order to stop them from following her. After discussing risks, benefits and alternative treatment options, pt agreed to start paliperidone. She gradually showed less paranoid delusions, less AH. No SI/HI. She was encouraged to stay longer but she declined and given that there was no imminent safety concerns as she continued taking medication and showed some improvement petition for involuntary treatment was cancelled. Pt discharge to friend's house who reports he can take her to appointments. Collateral information was gathered from mother- who reported on and off symptoms of paranoid, worsening over time. Pt show some improvement and more organized speech but continues to have symptoms at time of discharge. Time spent discussing smoking cessation with patient: 3 to 10 minutes Status at Discharge Cognitive/behavioral status at discharge: Pt denied SI/HI. Less AH, less paranoid delusions of being followed by [employer]. No signs of aggression towards self or others. pt was sleeping and eating well. Functional status at discharge: independent ambulation Overall status at discharge: patient is progressing back to baseline Time Spent with Patient Time attestation: Total time spent providing and/or coordinating discharge services: Discharge Plan Discharge Anticipated Discharge Date/Time: 06/18/22 12:14 Patient Disposition: Home Health Service Discharge Diagnosis: schizoaffective disorder Referrals: [facility] [Provider Group] - 1 Week (walk in hours friday through friday 8:30 am to 4 pm) Discharge Medications: New paliperidone [Invega] 6 mg tablet extended release 24hr 6 mg PO DAILY Qty: 30 0RF Discharge Orders: Discharge Order (Routine); Ordered 06/18/22 Ordered By: Cuca Hernandez Diet: Regular diet Activity on Discharge: As tolerated Stand Alone Forms: Patient Portal Discharge page, Community Support Care Plan Goals: 1. Maintain mood 2. No SI/HI 3. Less paranoid 4. No aggression towards self or others. Health Concerns: Follow up with PCP Plan of Treatment: 1. Take medications as prescribed. 2. Go to nearest ED or call 911 in event of emergency Assessment: Pt disheveled, slightly more organized speech. Less paranoid but significant residual paranoid related to [employer] following her. No signs of aggression towards self or others. No VH/AH. No SI/HI. Pt to go with friend who reports helping pt reconnect with services, health insurance. Discharge Date/Time: 06/18/22 13:08
--- NOTE | 2022-06-18 12:35 | PC.NURSE ---
Yolette is discharged from at this time. She denies ideation, plan or intent to harm herself or others. She denies physical complaint
== END 2022-06-18 13:08 | disposition home health service (06) | DRG 885 ==
LOC: HO.ED 07:28 → HO.PADLT16 06-06 15:07
PROVIDERS: Admitting Provider Psychiatry & Neurology Psychiatry; Emergency Provider Internal Medicine; Visit Provider Social Worker
DX: F20.9 Schizophrenia, unspecified (principal); N39.0 Urinary tract infection, site not specified; F17.210 Nicotine dependence, cigarettes, uncomplicated; Z71.6 Tobacco abuse counseling; Z20.822 Contact with and (suspected) exposure to COVID-19
CPT/HCPCS: 36415; 80053; 80061; 80307; 81001; 81025; 82077; 82607; 82746; 83036; 84436; 84443; 84481; 85025; 85652; 86038; 86039; 86140; 86376; 86800; 87635; 90792; 93005; 99285